=== PATIENT | male | born 1995 | race African-American/Black ===

== ENCOUNTER 2017-01-15 17:36 | Emergency (ER) | payer SELFPAY ==
[2017-01-15 18:09] VITALS: BP 137/82
--- NOTE | 2017-01-15 18:29 | UC ---
General HPI - HPI Summary HPI Summary: The patient comes in today for: 1. Upper inner thigh pain, and right knee locking. Onset: Thigh-3 to 4 days. Knee locking for "a couple of months." Palliative/provocative: Nothing makes the thigh or knee worse unless walking-- then the knee feels worse if it locked before. Quality: Sharpness in the thigh. No pain in the knee presently. Region: Right knee, and upper inner thighs. Severity: 7/10 Time: Constant for the thigh. Comes and goes for the right knee. Associated symptoms: Fever: None. Injury: None, but he states that he was using an exercise machine that is supposed to build up the adductor muscles. Previous treatment: None. Previous evaluation: None. * - History of Current Complaint Chief Complaint: UCGeneralIllness Stated Complaint: GROIN AREA COMPLAINT Time Seen by Provider: 01/15/17 17:48 Hx Obtained From: Patient - Allergy/Home Medications Allergies/Adverse Reactions: Allergies Allergy/AdvReac Type Severity Reaction Status Date / Time Penicillins [PCN] Allergy Unknown Hives Verified 01/15/17 17:49 PMH/Surg Hx/FS Hx/Imm Hx Previously Healthy: Yes Endocrine History Of: Denies: Diabetes, Thyroid Disease, Hyperthyroidism, Hypothyroidism, Dyslipidemia Cardiovascular History Of: Denies: Cardiac Disorders, Hypertension, Pacemaker/ICD, Myocardial Infarction , Congestive Heart Failure, Atrial Fibrillation, Deep Vein Thrombosis, Bleeding Disorders Respiratory History Of: Denies: COPD, Asthma, Bronchitis, Pneumonia, Pulmonary Embolism GI/ History Of: Denies: Gastroesophageal Reflux, Ulcer, Gastrointestinal Bleed, Gall Bladder Disease, Kidney Stones, Diverticulitis, Renal Disease, Urosepsis Neurological History Of: Denies: TIA, CVA, Dementia, Seizures, Migraine Psychological History Of: Denies: Anxiety, Depression, Bipolar Disorder, Schizophrenia, Post Traumatic Stress Disorder Cancer History Of: Denies: Lung Cancer, Colorectal Cancer, Breast Cancer, Prostate Cancer, Cervical Cancer Other History Of: Negative For: HIV, Hepatitis B, Hepatitis C, Anticoagulant Therapy - Surgical History Surgical History: None - Family History Known Family History: Negative: Cardiac Disease, Hypertension - Social History Occupation: Employed Full-time Alcohol Use: None Substance Use Type: None Smoking Status (MU): Current Every Day Smoker Type: Cigarettes Amount Used/How Often: 3-4 CIG/DAY Review of Systems Skin: Negative Eyes: Negative ENT: Negative Respiratory: Negative Cardiovascular: Negative Gastrointestinal: Negative Genitourinary: Negative Motor: Negative Musculoskeletal: Arthralgia, Myalgia All Other Systems Reviewed And Are Negative: Yes Physical Exam Triage Information Reviewed: Yes Appearance: Well-Appearing, No Pain Distress, Well-Nourished, Other: - Strong body odor. Vital Signs: Initial Vital Signs Temp 98.5 F 01/15/17 17:50 Pulse 103 01/15/17 17:50 Resp 18 01/15/17 17:50 BP 137/82 01/15/17 17:50 Pulse Ox 97 01/15/17 17:50 Vital Signs Reviewed: Yes Eyes: Positive: Conjunctiva Clear. Negative: Discharge ENT: Positive: Hearing grossly normal. Negative: Pharyngeal erythema, Nasal congestion, Nasal drainage, TM bulging, TM dull, TM red, Tonsillar swelling, Tonsillar exudate Dental: Negative: Gross Decay/Caries @, Dental Fracture @ Neck: Positive: Supple, Nontender, No Lymphadenopathy. Negative: Nuchal Rigidity Respiratory: Positive: Chest non-tender, Lungs clear, No respiratory distress, No accessory muscle use. Negative: Crackles, Wheezing Cardiovascular: Positive: RRR, No Murmur Abdomen Description: Positive: Nontender, No Organomegaly, Soft. Negative: Distended, Guarding Musculoskeletal: Positive: ROM Intact, No Edema, Other: - Thighs: There are no masses in the upper, inner thighs. No femoral hernia. No enlarged lymph nodes. There is tenderness below the adductor tendons of both thighs. Pressing on the upper third of the adductor musculature elicits the pain he comes in for evaluation. There is no edema or ecchymosis. Right knee: No effusion, no anterior lateral or medial meniscii tenderness. ROM: normal. No posterior capsule tenderness or masses. There is no laxity of the collateral or cruciate ligaments. Neurological: Positive: Alert, Muscle Tone Normal Psychological: Positive: Age Appropriate Behavior, Consolable Skin: Negative: rashes, breakdown Course/Dx - Differential Dx - Multi-Symptom Provider Diagnoses: High blood pressure. Upper right and left adductor strain. right knee pain/internal derangement. Discharge - Discharge Plan Condition: Stable Disposition: HOME Patient Education Materials: Muscle Strain (ED), Knee Pain (ED), Hypertension ( ED) Referrals: No Primary Care Phys,NOPCP [Medical Doctor] - 1 Week (Please see your primary care provider in about three days to see how well you are doing. If you don't have a primary care provider, please contact the physician referral service. If you can't get in timely, please you may come back to see us until you can. If you get worse, please be seen sooner by us or the ER.) Additional Instructions: Please see your primary care provider in 1-2 weeks to check your blood pressure.
[2017-01-15] MEDS ORDERED: Naproxen TAB* 250 MG PO ONE (18:37)
== END 2017-01-15 18:50 | disposition home or self-care (01) ==
LOC: UCEAST 17:36
DX: S76.212A Strain of adductor muscle, fascia and tendon of left thigh, initial encounter (principal); S76.211A Strain of adductor muscle, fascia and tendon of right thigh, initial encounter; M23.91 Unspecified internal derangement of right knee; M25.561 Pain in right knee; R03.0 Elevated blood-pressure reading, without diagnosis of hypertension; Z88.0 Allergy status to penicillin; F17.210 Nicotine dependence, cigarettes, uncomplicated
CPT/HCPCS: 99212; A9270-GY; G0463

== ENCOUNTER 2018-02-02 20:32 | Emergency (ER) | payer BC, OTHER ==
[2018-02-02 20:43] VITALS: BP 122/67
[2018-02-02] MEDS ORDERED: Al Hydrox/Mg Hydrox/Simet LIQ* 30 ML UDC PO ONE (21:13)
[2018-02-02] MEDS ORDERED: Acetaminophen TAB* 325 MG PO ONE (21:13)
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
== END 2018-02-02 22:06 | disposition home or self-care (01) ==
LOC: UCEAST 20:32
DX: R19.7 Diarrhea, unspecified (principal); R10.13 Epigastric pain; M79.1 Myalgia; S63.601A Unspecified sprain of right thumb, initial encounter; V29.9XXA Motorcycle rider (driver) (passenger) injured in unspecified traffic accident, initial encounter; Y93.9 Activity, unspecified; Y92.9 Unspecified place or not applicable; K21.9 Gastro-esophageal reflux disease without esophagitis; Z88.0 Allergy status to penicillin; F17.210 Nicotine dependence, cigarettes, uncomplicated
CPT/HCPCS: 87502; 99212; A9270-GY; G0463

== ENCOUNTER 2019-09-11 15:33 | Emergency (ER) | payer BC, OTHER ==
[2019-09-11 15:39] VITALS: BP 136/99
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
[2019-09-11] MEDS ORDERED: Naloxone* 0.4 MG/ML 1 ML VIAL IV PUSH ONE (16:11)
== END 2019-09-11 15:57 | disposition home or self-care (01) ==
LOC: ED 15:33
DX: R25.2 Cramp and spasm (principal); F17.210 Nicotine dependence, cigarettes, uncomplicated; Z88.0 Allergy status to penicillin
CPT/HCPCS: 99281